=== PATIENT | female | born 1950 | race Caucasian/White ===

== ENCOUNTER → 2024-02-03 13:25 | Outpatient (REF) | payer MEDICARE, SELFPAY | LOC: HWWDC 13:25 | PROVIDERS: ATTENDING PHYSICIAN Obstetrics & Gynecology Gynecology; FAMILY PHYSICIAN Internal Medicine | DX: Z01.419 Encounter for gynecological examination (general) (routine) without abnormal findings (principal) | CPT/HCPCS: 77063; 77067 ==

== ENCOUNTER → 2024-05-09 08:03 | Outpatient (REF) | payer MEDICARE, SELFPAY | LOC: RAD 08:03 | PROVIDERS: ATTENDING PHYSICIAN Internal Medicine | DX: M12.812 Other specific arthropathies, not elsewhere classified, left shoulder (principal) | CPT/HCPCS: 73030 ==

== ENCOUNTER 2024-06-23 06:56 | Outpatient (RCR) | payer MEDICARE, SELFPAY | END 2024-06-23 23:59 | disposition home or self-care (01) | LOC: RPT 06:56 | PROVIDERS: ATTENDING PHYSICIAN Orthopaedic Surgery Hand Surgery; FAMILY PHYSICIAN Internal Medicine | DX: M19.012 Primary osteoarthritis, left shoulder (principal); Z73.6 Limitation of activities due to disability | CPT/HCPCS: 97010; 97110; 97140; 97161 ==

== ENCOUNTER 2024-07-12 06:37 | Outpatient (RCR) | payer MEDICARE, SELFPAY | END 2024-07-12 23:59 | disposition home or self-care (01) | LOC: RPT 06:37 | PROVIDERS: ATTENDING PHYSICIAN Orthopaedic Surgery Hand Surgery; FAMILY PHYSICIAN Internal Medicine | DX: M19.012 Primary osteoarthritis, left shoulder (principal); Z73.6 Limitation of activities due to disability; M62.81 Muscle weakness (generalized) | CPT/HCPCS: 97010; 97110; 97140 ==

== ENCOUNTER 2024-08-02 06:52 | Outpatient (RCR) | payer MEDICARE, SELFPAY | END 2024-08-02 10:33 | disposition home or self-care (01) | LOC: RPT 06:52 | PROVIDERS: ATTENDING PHYSICIAN Orthopaedic Surgery Hand Surgery; FAMILY PHYSICIAN Internal Medicine | DX: M19.012 Primary osteoarthritis, left shoulder (principal); Z73.6 Limitation of activities due to disability; M62.81 Muscle weakness (generalized); R26.89 Other abnormalities of gait and mobility | CPT/HCPCS: 97010; 97110; 97112 ==

== ENCOUNTER → 2025-02-26 07:23 | Outpatient (REF) | payer MEDICARE, SELFPAY | LOC: HWWDC 07:23 | PROVIDERS: ATTENDING PHYSICIAN Obstetrics & Gynecology Gynecology; FAMILY PHYSICIAN Internal Medicine | DX: Z12.31 Encounter for screening mammogram for malignant neoplasm of breast (principal) | CPT/HCPCS: 77063; 77067 ==

== ENCOUNTER 2025-04-29 15:23 | Emergency (ER) | payer MEDICARE, SELFPAY ==
[2025-04-29 15:28] VITALS: BP 162/97
[2025-04-29 17:36] VITALS: BP 126/86; BMI 26.8
--- NOTE | 2025-04-29 17:36 | ED.GENMED ---
History of Present Illness
General
Chief Complaint: Skin Surface Trauma
Time Seen by Provider: 04/29/25 17:23
History of Present Illness
History of Present Illness:
75-year-old female presents due to a right lower extremity skin tear, she suffered this injury yesterday and went to urgent care where Gelfoam dressing was applied. She is concerned that the area does not 'look right' close prompting her to come
today.
Review of Systems
Review of Systems
Allergies reviewed?: Yes
All Other Systems: ROS reviewed and negative except as documented in HPI and ROS
Phy Exam
Physical Exam
Physical Exam:
GEN: Well appearing, NAD, WDWN
HEENT: Oral mucosa moist, no scleral icterus
Cardiac: Regular rate
Lung: No respiratory distress, no tachypnea
MSK: No gross deformity or injuries
Skin: Good color, no pallor or jaundice, no rashes. There is a Gelfoam dressing overlying the right lower extremity skin tear with dark coagulated blood, no active bleeding
Neuro: AO x3, moves all extremities freely
Psych: Calm, cooperative
Course
Vital Signs
Initial and Last Documented VS:
Initial Vital Signs
Temp Pulse Resp BP Pulse Ox
98.1 F 78 18 162/97 97
04/29/25 15:28 04/29/25 15:28 04/29/25 15:28 04/29/25 15:28 04/29/25 15:28
Last Documented Vital Signs
Temp Pulse Resp BP Pulse Ox
97.6 F 76 16 126/86 97
04/29/25 17:36 04/29/25 17:36 04/29/25 17:36 04/29/25 17:36 04/29/25 17:39
MDM/Problems Addressed
MDM/Problems Addressed:
Educated the patient on Gelfoam supportive treatment, no evidence of active bleeding at this time
*Pulse Oximetry
SaO2: 97
Oxygen Mode of Delivery: Room air
Patient hypoxic: no
*Critical Care Note
Total Time (30-74mins, 75-104mins- exclusive of procedures): Not Applicable
ED Attending Note
-
Portions of this chart may have been created with voice recognition software.� Occasional wrong word or��sound alike� substitutions may have occurred due to the inherent limitations of voice recognition software.
Discharge Plan
Departure
Patient Disposition: Home (Routine Discharge)
Date of Disposition: 04/29/25
Time of Disposition: 17:38
Patient with high blood pressure during this ER visit?: No
Discharge Problem:
Noninfected skin tear of right leg
Instructions: Wound Care (DC)
Activity Restrictions/Additional Instructions:
The gelfoam bandage will gradually dissolve over the next week
You may wash each day with soap and water however do not scrub the wound
Return if bleeding continues
Interventions
Interventions:
*Risk Screen - Suicide Last Done: 04/29/25 15:28
*General Assessment Last Done: 04/29/25 15:28
*Neglect/Abuse Screening Last Done: 04/29/25 17:36
*ED- Fall Risk Assessment Last Done: 04/29/25 17:36
*ED COVID-19 Vaccine History Last Done: 04/29/25 17:36
*Nursing Disposition Last Done: 04/29/25 18:15
ED-Skin Assessment Last Done: 04/29/25 17:36
Discharge Date and Time
Discharge Date/Time: 04/29/25 18:16
Print Language: SLOVAK
== END 2025-04-29 18:16 | disposition home or self-care (01) ==
LOC: EMR 15:23
PROVIDERS: EMERGENCY PHYSICIAN Emergency Medicine
DX: S81.811A Laceration without foreign body, right lower leg, initial encounter (principal); X58.XXXA Exposure to other specified factors, initial encounter
CPT/HCPCS: 99281

== ENCOUNTER → 2025-07-31 13:06 | Outpatient (REF) | payer MEDICARE, SELFPAY | LOC: RAD 13:06 | PROVIDERS: ATTENDING PHYSICIAN Nurse Practitioner Acute Care; FAMILY PHYSICIAN Internal Medicine | DX: M85.80 Other specified disorders of bone density and structure, unspecified site (principal); Z13.820 Encounter for screening for osteoporosis; M85.89 Other specified disorders of bone density and structure, multiple sites | CPT/HCPCS: 77080 ==